=== PATIENT | male | born 1970 | race Two or more races ===

== ENCOUNTER 2021-12-05 21:21 | Inpatient (IN) | payer OTHER ==
[~2021-12-05] VITALS: Ht 172.7 cm; Wt 68.0 kg
--- NOTE | 2021-12-05 21:46 | NUR ---
TO ER BED 4. BIBPA C/O N/V X 1DAY. STATES "BLOOD SUGAR FEELS HIGH". PT DENIES CHEST PAIN. NOT IN RESPIRATORY DISTRESS. 2 EMESIS EPISODES NOTED WHILE AT BEDSIDE. PT CONNECTED TO MONITOR, CHOKING PRECAUTIONS IN PLACE. AWAITING MD SANCHEZ
--- NOTE | 2021-12-05 21:50 | NUR ---
BG >600, MD MADE AWARE
--- NOTE | 2021-12-05 22:08 | NUR ---
IV LINE ESTABLISHED , LAC 20G
--- NOTE | 2021-12-05 22:10 | NUR ---
BLOOD COLLECTED AND SENT TO LAB
[2021-12-05] MEDS ORDERED: MORPHINE SULFATE INJ 4 MG/ML DISP.SYRIN ONE (22:18)
[2021-12-05] MEDS ORDERED: ONDANSETRON HCL/PF 4 MG/2 ML VIAL ONE (22:18)
[2021-12-05] MEDS: IV NS 0.9% 1,000 ML IV PRN (22:24)
--- NOTE | 2021-12-05 22:25 | NUR ---
RT AT BEDSIDE FOR ABG
[2021-12-05] MEDS ORDERED: ONDANSETRON HCL/PF - ER 4 MG/2 ML VIAL IV ONE (22:30)
[2021-12-05] MEDS ORDERED: MORPHINE SULFATE INJ 2 MG/ML DISP.SYRIN IV ONE (22:30)
[2021-12-05] MEDS ORDERED: IV NS 0.9% 1,000 ML IV PRN ×3 (22:30→23:30)
[2021-12-05 22:35] LABS: ABG BASE EXCESS -17.2 mmol/L; ABG PCO2 21.2 mmHg (35.0-45.0); ABG PH 7.217 (7.350-7.450); ABG PO2 97.7 mmHg (75.0-100.0); COHb 0.1 % (0.5-1.5); MetHb 0.4 % (0.0-1.5); O2Hb 96.2 % (94.0-97.0); SITE, ABG Right Brachial; VENT MODE, BG Room Air
--- NOTE | 2021-12-05 22:46 | NUR ---
URINE COLLECTED AND SENT TO LAB
[2021-12-05 22:56] LABS: BASOPHILS % (AUTO) 0.1 % (0.0-2.0); EOSINOPHILS % (AUTO) 0.1 % (0.0-6.0); HEMATOCRIT 45 % (39-51); HEMOGLOBIN 14.3 g/dL (13.5-17.5); LYMPHOCYTES # (AUTO) 0.9 K/uL (0.8-4.8); LYMPHOCYTES % (AUTO) 2.6 % (20.0-44.0); MEAN CORPUSCULAR HGB CONC 32 g/dl (31.0-36.0); MEAN CORPUSCULAR VOLUME 94 fL (80-96); MONOCYTES # (AUTO) 1.8 K/uL (0.1-1.30); MONOCYTES % (AUTO) 5.5 % (2.0-12.0); NEUTROPHILS # (AUTO) 30.8 K/uL (1.8-8.9); NEUTROPHILS % (AUTO) 91.7 % (43.0-81.0); PLATELET COUNT (AUTO) 519 K/uL (150-450); RED BLOOD CELL COUNT(AUTO) 4.81 MIL/uL (4.5-6.0)
[2021-12-05 22:56] LABS: BILIRUBIN,URINE NEGATIVE (NEGATIVE); COLOR,URINE YELLOW (YELLOW); LEUKOCYTE ESTERASE ,URINE NEGATIVE (NEGATIVE); NITRITE, URINE NEGATIVE (NEGATIVE); PH,URINE 5.5 (5.0-8.0); PROTEIN,URINE NEGATIVE (NEGATIVE); UGLUCOSE >=1000 mg/dL (NEGATIVE); UROBILINOGEN,URINE 0.2 EU/dL (0.2)
[2021-12-05 23:00] LABS: BASOPHILS # (AUTO) 0.1 K/uL (0.0-0.2)
[2021-12-05 23:01] LABS: WHITE BLOOD COUNT (AUTO) 33.6 K/uL (4.3-11.0)
[2021-12-05 23:18] LABS: CALCIUM, SERUM 10.7 mg/dL (8.5-10.1); CREATININE 2.1 mg/dL (0.6-1.3); MAGNESIUM 2.3 mg/dL (1.8-2.4)
--- NOTE | 2021-12-05 23:18 | NUR ---
COVID TEST SWABBED AND SENT TO LAB
[2021-12-05] MEDS ORDERED: CLON0.5T PO (23:20)
[2021-12-05] MEDS ORDERED: QUET300T2 PO (23:20)
[2021-12-05] MEDS ORDERED: PREG150C PO (23:20)
[2021-12-05] MEDS ORDERED: CHOL100045 PO (23:20)
[2021-12-05] MEDS ORDERED: PARO10TA86 PO (23:20)
[2021-12-05] MEDS ORDERED: PANT40TA49 PO (23:20)
[2021-12-05] MEDS ORDERED: SIMV-49 PO (23:20)
[2021-12-05] MEDS ORDERED: LEVE1000 PO (23:20)
[2021-12-05 23:25] LABS: POTASSIUM 6.2 mmol/L (3.5-5.1)
[2021-12-05 23:26] LABS: PHOSPHORUS 8.9 mg/dL (2.5-4.9)
--- NOTE | 2021-12-05 23:26 | NUR ---
CRITICAL VALUES GLUCOSE 708, PHOS 8.9, POTASSIUM 6.2
--- NOTE | 2021-12-05 23:28 | NUR ---
SECOND IV LINE ESTABLISHED RAC 20G , PER ICU PROTOCAL
[2021-12-05] MEDS ORDERED: INSULIN REGULAR, HUMAN 100 UNITS in IV NS 0.9% 100 ML IV PRN ×2 (23:30)
[2021-12-05] MEDS ORDERED: INSULIN REGULAR, HUMAN 100 UNIT/ML 10 ML VIAL ONE (23:42)
[2021-12-05] MEDS ORDERED: ONDANSETRON 4 MG TAB.RAPDIS ONE (23:52)
[2021-12-05] MEDS ORDERED: Calcium Gluconate 0.465 MEQ/ML VIAL IV ONE (23:57)
[2021-12-06] MEDS ORDERED: MAGNESIUM HYDROXIDE 30 ML UDC PO PRN
[2021-12-06] MEDS ORDERED: IV NS 0.9% 1,000 ML IV PRN
[2021-12-06] MEDS ORDERED: Calcium Gluconate 1GM/10ML 4.65 MEQ in IV D5W 50 ML IV ONE ×2
[2021-12-06 00:20] LABS: BACTERIA,URINE None seen /HPF (None Seen); RBC,URINE 0-2 /HPF (0-2); SQUAMOUS EPITHELIAL CELL,UR Few /HPF (None Seen); WBC,URINE 0-2 /HPF (0-3)
[2021-12-06] MEDS: IV NS 0.9% 1,000 ML IV PRN (00:51)
[2021-12-06] MEDS ORDERED: HEPARIN SODIUM, PORCINE 5000 UNITS/1 ML VIAL ONE (00:55)
[2021-12-06] MEDS: HEPARIN SODIUM, PORCINE 5000 UNITS/1 ML VIAL SQ SCH ×3 (01:00→21:21)
--- NOTE | 2021-12-06 01:10 | NUR ---
FSBS:588 SPOKE TO KANDY ARROYO HOSPITALIST. PER HER TO FOLLOW THE FORMULA OF BSX1.5/100 INSULIN DRIP TITERATED TO 8.8UNIT/HR. WILL RE CHECK BLOOD SUGAR IN ONE HOUR.
--- NOTE | 2021-12-06 01:55 | NUR ---
PT RESTING COMFORTABLY IN BED, URINAL PROVIDED. WILL CONTINUE TO MONITOR
[2021-12-06 02:31] LABS: CALCIUM, SERUM 9.3 mg/dL (8.5-10.1); MAGNESIUM 2.2 mg/dL (1.8-2.4); PHOSPHORUS 6.1 mg/dL (2.5-4.9); POTASSIUM 4.8 mmol/L (3.5-5.1)
[2021-12-06 02:34] LABS: CREATININE 2.1 mg/dL (0.6-1.3)
[2021-12-06 03:06] LABS: CALCIUM, SERUM 8.8 mg/dL (8.5-10.1); CREATININE 1.9 mg/dL (0.6-1.3); MAGNESIUM 2.2 mg/dL (1.8-2.4)
--- NOTE | 2021-12-06 03:32 | NUR ---
BG 302, AWARE
--- NOTE | 2021-12-06 03:33 | NUR ---
INSULIN DRIP TRITRATED DOWN TO 4.53 PER PROTOCAL, PT TOLERATING WELL
--- NOTE | 2021-12-06 04:34 | NUR ---
BG 266, MD AWARE. TRITRATED INSULIN DRIP DOWN TO 3.99 PER PROTOCAL. WILL CONTINIE TO MONITOR
--- NOTE | 2021-12-06 05:47 | NUR ---
BG 233, AWARE. WILL TRITRATE INSULIN DRIP DOWN TO 3.495 PER PROTOCAL
[2021-12-06 06:02] LABS: CALCIUM, SERUM 9.2 mg/dL (8.5-10.1); CREATININE 1.9 mg/dL (0.6-1.3); MAGNESIUM 2.4 mg/dL (1.8-2.4); PHOSPHORUS 2.4 mg/dL (2.5-4.9); POTASSIUM 4.1 mmol/L (3.5-5.1)
[2021-12-06 06:21] LABS: BASOPHILS % (AUTO) 0.1 % (0.0-2.0); HEMATOCRIT 41 % (39-51); HEMOGLOBIN 13.2 g/dL (13.5-17.5); LYMPHOCYTES # (AUTO) 1.6 K/uL (0.8-4.8); LYMPHOCYTES % (AUTO) 4.4 % (20.0-44.0); MEAN CORPUSCULAR HGB CONC 32 g/dl (31.0-36.0); MEAN CORPUSCULAR VOLUME 92 fL (80-96); MONOCYTES # (AUTO) 2.3 K/uL (0.1-1.30); MONOCYTES % (AUTO) 6.2 % (2.0-12.0); NEUTROPHILS # (AUTO) 33.1 K/uL (1.8-8.9); NEUTROPHILS % (AUTO) 89.3 % (43.0-81.0); PLATELET COUNT (AUTO) 467 K/uL (150-450); RED BLOOD CELL COUNT(AUTO) 4.46 MIL/uL (4.5-6.0)
--- NOTE | 2021-12-06 07:06 | NUR ---
BG 222, MD AWARE. TRITRATED INSULIN DRIP DOWN TO 3.33 PER PROTOCAL
[2021-12-06] MEDS ORDERED: ONDANSETRON HCL/PF 4 MG/2 ML VIAL ONE (07:09)
[2021-12-06] MEDS ORDERED: INSU100V27 SQ ×2 (07:19)
[2021-12-06] MEDS ORDERED: ACET-2605 PO (07:19)
[2021-12-06] MEDS ORDERED: HYDR-4303 PO (07:19)
[2021-12-06] MEDS ORDERED: CEFTRIAXONE 1 G in IV D5W 50 ML IV SCH (07:30)
[2021-12-06 08:15] LABS: WHITE BLOOD COUNT (AUTO) 37.1 K/uL (4.3-11.0)
[2021-12-06] MEDS: CEFTRIAXONE 2 G in IV D5W 100 ML IV SCH (08:30)
--- NOTE | 2021-12-06 08:35 | NUR ---
DR ROTH INFORMED CRITICAL LAB RESULTS PROCALCITONIN 4.10, WBC 37.1, GLUCOSE CHECK 185. NO NEW ORDER MD WANTS TO SEE PATIENT.
[2021-12-06 09:11] LABS: BAND % (MANUAL) 6 % (0.0-5.0); LYMPHOCYTES % (MANUAL) 2 % (16-48); METAMYELOCYTES % 1 % (0-0); MONOCYTES % (MANUAL) 2 % (0-11.0); MYELOCYTES % 1 % (0-0); NEUTROPHILS % (MANUAL) 88 (42-76)
--- NOTE | 2021-12-06 09:15 | NUR ---
GLUCOSE CHECK 145. INFORMED
--- NOTE | 2021-12-06 09:43 | NUR ---
KENDRICK CAMP, DNP MADE AWARE RE: BLOOD GLUCOSE OF 145 MG/DL. WITH NEW ORDER FOR D5 1/2 NS WITH 20 MEQ KCL AT 125 ML/HR AND TO FOLLOW DKA PROTOCOL. PRIMARY RN AWARE.
[2021-12-06] MEDS: Potassium Chloride 20 MEQ in IV D5/0.45 NACL 1,000 ML IV SCH ×2 (10:00→21:19)
--- NOTE | 2021-12-06 10:00 | NUR ---
STARTED ON D5 1/2 NS WITH 20MEQ KCL AT 125 MLS/HR ORDERED.
[2021-12-06 10:07] LABS: CALCIUM, SERUM 8.7 mg/dL (8.5-10.1); CREATININE 1.4 mg/dL (0.6-1.3); POTASSIUM 4.5 mmol/L (3.5-5.1)
--- NOTE | 2021-12-06 11:30 | NUR ---
GLUCOSE CHECK 148. AWARE
[2021-12-06 11:42] LABS: BAND % (MANUAL) 2 % (0.0-5.0); LYMPHOCYTES % (MANUAL) 12 % (16-48); MONOCYTES % (MANUAL) 6 % (0-11.0); NEUTROPHILS % (MANUAL) 80 (42-76)
--- NOTE | 2021-12-06 12:50 | NUR ---
LATEST BLOOD GLUCOSE 175. MD IS AWARE
[2021-12-06 14:02] LABS: CALCIUM, SERUM 8.6 mg/dL (8.5-10.1); CREATININE 1.4 mg/dL (0.6-1.3); POTASSIUM 4.1 mmol/L (3.5-5.1)
--- NOTE | 2021-12-06 14:30 | NUR ---
GLU CHECK 155
[2021-12-06] MEDS ORDERED: Sodium Phosphate 15 MMOL in IV NS 0.9% 245 ML IV SCH (15:00)
[2021-12-06] MEDS: ACETAMINOPHEN 325 MG TABLET PO PRN (15:00)
[2021-12-06] MEDS ORDERED: ACETAMINOPHEN 325 MG TABLET ONE (15:05)
--- NOTE | 2021-12-06 16:11 | NUR ---
Pauline espitia in [facility] - 12/06/21 at 1700 by NIKA GLU CHECK 83
--- NOTE | 2021-12-06 16:11 | NUR ---
GLU CHECK 83 INSULIN INFUSION STOP
[2021-12-06] MEDS ORDERED: DEXTROSE 50%-WATER 50 ML DISP.SYRIN IV PRN (18:30)
--- NOTE | 2021-12-06 18:51 | NUR ---
ROOM 109. AFTER SHIFT.
[2021-12-06 19:37] LABS: CALCIUM, SERUM 8.3 mg/dL (8.5-10.1); CREATININE 1.2 mg/dL (0.6-1.3); POTASSIUM 3.9 mmol/L (3.5-5.1)
--- NOTE | 2021-12-06 20:01 | NUR ---
report given to ene
--- NOTE | 2021-12-06 20:28 | NUR ---
PT TRANSPORTED TO ROOM 109 ON SOLE STAINER PER ACLS PROTOCOL
[2021-12-06 20:52] VITALS: BP 139/70
--- NOTE | 2021-12-06 20:52 | NUR ---
NEW VEHICLE SALES CONSULTANT NOTES PT A/O X3 NO PAIN OF DISCOMFORT NOTED. PT ON ROOM AIR TOLERATING WELL. PT ON TELE MONITOR. PT NOTED WITH IV ACCESS ON THE LEFT AND RIGHT AC 2OG PT STARTED ON KCL D1/2 @ 110 RUNNING TOLERATING WELL. PT SKIN ASSESSMENT DONE PT SKIN DRY WARM AND INTACT DID NOTICE A SCAB ON PTS UPPER BACK PICTURE TAKEN AND PLACED IN CHART WILL ORDER WOUND CARE CONSULT. PT NOTED WITH LEFT EYE BLINDNESS. POSITIONED TABLE ON PT RIGHT SIDE FOR EASIER ACCESS. PT ORIENTED TO UNIT AND ROOM ALL NEEDS ATTENDED AT THIS TIME. BELONGINGS CHECKED PT HAS UPPER DENTURES WITH HIM PT INSISTED ON KEEPING THEM ON AT THIS TIME. WILL CONTINUE TO MONITOR. Addendum: 12/06/21 at 2340 by TOMASZ HUBER RN PT NOTED WITH PERSISTENT HICCUPS AND SOME SHAKINESS. FLUIDS STOPPED ONCE AQ CHECK SHOWED 317 BS.
[2021-12-06] MEDS: BLOOD SUGAR DIAGNOSTIC 1 EACH STRIP IN SCH (21:21)
[2021-12-06] MEDS: INSULIN GLARGINE, 100 UNIT/ML CARTRIDGE SQ SCH (21:39)
[2021-12-06] MEDS: INSULIN REGULAR, HUMAN 100 UNIT/ML 3 ML VIAL SQ PRN (21:42)
[2021-12-06] MEDS: ONDANSETRON HCL/PF 4 MG/2 ML VIAL IVP PRN (21:46)
--- NOTE | 2021-12-06 22:55 | NUR ---
REHABILITATION CLERK NOTES PT HAVING 1 EPISODE OF EMESIS N/V PRN BRANDI GIVEN TOLERATED WELL. WILL CONTINUE TO MONITOR. Addendum: 12/06/21 at 2328 by TOMASZ HUBER RN EMESIS X4
[2021-12-06 23:09] LABS: CALCIUM, SERUM 8.1 mg/dL (8.5-10.1); CREATININE 1.3 mg/dL (0.6-1.3); POTASSIUM 3.9 mmol/L (3.5-5.1)
[2021-12-07] MEDS: BLOOD SUGAR DIAGNOSTIC 1 EACH STRIP IN SCH ×6 (01:04→21:58)
[2021-12-07] MEDS: INSULIN REGULAR, HUMAN 100 UNIT/ML 3 ML VIAL SQ PRN ×6 (01:06→22:09)
[2021-12-07] MEDS: METOCLOPRAMIDE HCL 10 MG/2 ML VIAL IV SCH ×5 (01:55→23:09)
[2021-12-07 04:41] VITALS: BP 127/64
--- NOTE | 2021-12-07 04:43 | NUR ---
WOOD PILER NOTES PT SAID HE HAD BACK PAIN WHEN OFFERED PAIN MEDICATIO PT STATED " ITS OKAY I DONT NEED IT" WILL CONTINUE TO MONITOR.
--- NOTE | 2021-12-07 05:14 | NUR ---
OPERATIONS AND MAINTENANCE SPECIALIST NOTES REGLAN NOT GIVEN AT IT HAS ONLY BEEN 3 HOURS SINCE LAST DOSE WAS GIVEN. WILL CONTINUE TO MONITOR. PT DOES NOT HAVE N/V AT THIS TIME AND NO HICCUPS.
--- NOTE | 2021-12-07 06:45 | NUR ---
BEAMER HAND NOTES PT IN BED ASLEEP NO RESPIRATOR DISTRESS NOTED NO PAIN OR DISCOMFORT REPORTED. PT NO LONGER HAVING N/V. PT ALL NEEDS MET. CALL LIGHT WITHIN REACH. TABLE WITHIN REACH. PT ON TELE MONITOR ST IN 120S. WILL ENDORSE CARE TO DYA SHIFT NURSE.
[2021-12-07 07:10] LABS: CALCIUM, SERUM 8.8 mg/dL (8.5-10.1); POTASSIUM 4.1 mmol/L (3.5-5.1)
[2021-12-07 07:32] LABS: BASOPHILS # (AUTO) 0.1 K/uL (0.0-0.2); BASOPHILS % (AUTO) 0.2 % (0.0-2.0); HEMATOCRIT 36 % (39-51); HEMOGLOBIN 12.2 g/dL (13.5-17.5); LYMPHOCYTES # (AUTO) 1.7 K/uL (0.8-4.8); LYMPHOCYTES % (AUTO) 7.3 % (20.0-44.0); MEAN CORPUSCULAR HGB CONC 34 g/dl (31.0-36.0); MEAN CORPUSCULAR VOLUME 90 fL (80-96); MONOCYTES # (AUTO) 1.4 K/uL (0.1-1.30); MONOCYTES % (AUTO) 6.2 % (2.0-12.0); NEUTROPHILS # (AUTO) 19.7 K/uL (1.8-8.9); NEUTROPHILS % (AUTO) 86.3 % (43.0-81.0); PLATELET COUNT (AUTO) 381 K/uL (150-450); RED BLOOD CELL COUNT(AUTO) 4.04 MIL/uL (4.5-6.0); WHITE BLOOD COUNT (AUTO) 22.8 K/uL (4.3-11.0)
--- NOTE | 2021-12-07 07:35 | NUR ---
car rental sales assistant OPENING NOTES RECEIVED PATIENT IN BED, AWAKE, A/O X3, VERBALLY RESPONSIVE. BREATHING EVEN AND UNLABORED. NO SOB NOTED on room air. IV ACCESS LAC #20G, INTACT AND PATENT. NO S/S OF INFILTRATIONS. NO C/O PAIN OR DISCOMFORT. NO ACUTE DISTRESS. ALL SAFETY MEASURE IN PLACE. BED IN LOWEST POSITION AND LOCKED. BED ALARM ON. SIDE RAILS UP X2, PLACE CALL LIGHT WITH IN REACH. WILL CONTINUE TO MONITOR.
[2021-12-07] MEDS: CEFTRIAXONE 2 G in IV D5W 100 ML IV SCH (08:07)
[2021-12-07] MEDS: INSULIN LISPRO/ASPART 100 UNIT/ML CARTRIDGE SQ SCH ×3 (08:08→17:02)
[2021-12-07] MEDS: HEPARIN SODIUM, PORCINE 5000 UNITS/1 ML VIAL SQ SCH ×2 (08:12→21:45)
[2021-12-07] MEDS: ONDANSETRON HCL/PF 4 MG/2 ML VIAL IVP PRN (08:13)
[2021-12-07 09:16] LABS: ALBUMIN 3.3 g/dL (3.4-5.0); BILIRUBIN,TOTAL 0.5 mg/dL (0.2-1.0); CALCIUM, SERUM 8.7 mg/dL (8.5-10.1); CREATININE 1.1 mg/dL (0.6-1.3); PHOSPHORUS 2.3 mg/dL (2.5-4.9); POTASSIUM 3.7 mmol/L (3.5-5.1); TOTAL PROTEIN, SERUM 6.4 g/dL (6.4-8.2)
[2021-12-07 09:52] LABS: CREATININE 1.1 mg/dL (0.6-1.3)
[2021-12-07 12:00] VITALS: BP 141/93
[2021-12-07] MEDS: ACETAMINOPHEN 325 MG TABLET PO PRN ×2 (12:56→23:08)
--- NOTE | 2021-12-07 14:56 | NUR ---
telephone appointment clerk notes: patient and his mother request to talk to leather case finisher he does not want to get discharge to [facility], called leather case finisher ,made aware stated she will take care of it
[2021-12-07] MEDS ORDERED: K PHOS NEUTRAL 250 MG TABLET PO ONE (16:00)
[2021-12-07 17:00] VITALS: BP 153/96
--- NOTE | 2021-12-07 18:45 | NUR ---
TILER'S ASSISTANT CLOSING NOTES: PT IN BED AWAKEAND ALERT NO RESPIRATOR DISTRESS NOTED NO PAIN OR DISCOMFORT REPORTED. MILD EPISODE OF NAUSEA NO VOMITING THIS SHIFT,. PT ALL NEEDS MET. CALL LIGHT WITHIN REACH. TABLE WITHIN REACH. PT ON TELE MONITOR SR WILL ENDORSE CARE TO INCOMING SHIFT NURSE.
--- NOTE | 2021-12-07 19:30 | NUR ---
RN OPENING NOTES RECEIVED CARE OF PATIENT FROM AM NURSE WHILE PATIENT IN BED, A/O X3, ABLE TO VERBALIZE NEEDS, PATIENT EXPRESSES NO DISCOMFORT OR PAIN AT THIS TIME. PATIENT ON ROOM AIR, BREATHING EVEN AN UNLABORED, NO SOB NOTED. PATIENT ON TELE MONITOR SHOWING SINUS TACH WITH HR OF 107, NO DISTRESS NOTED. NO SIGNIFICANT FINDINGS UPON INITIAL NURSING ASSESSMENTS. ALL SAFETY MEASURE IN PLACE. BED IN LOWEST POSITION AND LOCKED. BED ALARM ON. SIDE RAILS UP X2, PLACE CALL LIGHT WITH IN REACH. WILL CONTINUE TO MONITOR.
[2021-12-07 20:00] VITALS: BP 148/83
[2021-12-07] MEDS: INSULIN GLARGINE, 100 UNIT/ML CARTRIDGE SQ SCH (22:08)
--- NOTE | 2021-12-07 22:15 | NUR ---
RN NOTES: PT'S BLOOD SUGAR 211,20 UNITS OF LANTUS AND 6 UNITS OF REGULAR INSULIN GIVEN ORDER. NO S/S OF HYPER/HYPOGLYCEMIA. WILL CONTINUE TO MONITOR
--- NOTE | 2021-12-07 23:23 | NUR ---
RN NOTES: PT C/O MILD HEADACHE, 3/10 PAIN SCALE. TYLENOL 650 MG TABS GIVEN. PT TOLERATED WELL. WILL CONTINUE TO MONITOR
[2021-12-08] VITALS: BP 145/78
[2021-12-08] MEDS: HYDROCODONE/APAP 5/325MG TABLET PO PRN ×3 (00:53→16:00)
[2021-12-08] MEDS: BLOOD SUGAR DIAGNOSTIC 1 EACH STRIP IN SCH ×4 (01:02→12:09)
[2021-12-08] MEDS: INSULIN REGULAR, HUMAN 100 UNIT/ML 3 ML VIAL SQ PRN ×3 (01:18→12:16)
--- NOTE | 2021-12-08 01:21 | NUR ---
RN NOTES: PT STILL C/O GENERALIZED BODY PAIN 7/10 PAIN SCALE. NORCO 5/325 MG TAB GIVEN. BLOOD SUGAR 174, 3 UNITS OF REGULAR INSULIN GIVEN. NO S/S OF HYPER/HYPOGLYCEMIA. WILL CONTINUE TO MONITOR
[2021-12-08 04:00] VITALS: BP 148/78
[2021-12-08] MEDS: METOCLOPRAMIDE HCL 10 MG/2 ML VIAL IV SCH ×2 (05:33→11:06)
--- NOTE | 2021-12-08 06:42 | NUR ---
RN CLOSING NOTES: PT IN BED SLEEPING BUT EASILY AROUSABLE, ALERT/ORIENTED X3 AND VERBALLY RESPONSIVE. ON ROOM AIR, O2 SAT 98% AND PT TOLERATED WELL. BREATHING EVEN AND UNLABORED. IV ACCESS ON LAC#20G AND RAC#20G INTACT AND PATENT. NO S/S OF INFILTRATIONS. NO C/O PAIN OR DISCOMFORT. NO ACUTE DISTRESS. BLOOD SUGAR AT 0500, 124, NO COVERAGE NEEDED. NO S/S OF HYPER/HYPOGLYCEMIA. ALL DUE MEDS GIVEN ORDERED. ALL SAFETY MEASURES IN PLACE. SIDE RAILS UP X2, BED IN LOWEST POSITION AND LOCKED. PLACE CALL LIGHT WIT IN REACH. WILL ENDORSE TO MORNING SHIFT NURSE.
[2021-12-08 07:02] LABS: BASOPHILS # (AUTO) 0.1 K/uL (0.0-0.2); BASOPHILS % (AUTO) 0.8 % (0.0-2.0); EOSINOPHILS % (AUTO) 0.2 % (0.0-6.0); HEMATOCRIT 40 % (39-51); HEMOGLOBIN 13.6 g/dL (13.5-17.5); LYMPHOCYTES # (AUTO) 1.9 K/uL (0.8-4.8); LYMPHOCYTES % (AUTO) 17.8 % (20.0-44.0); MEAN CORPUSCULAR HGB CONC 34 g/dl (31.0-36.0); MEAN CORPUSCULAR VOLUME 89 fL (80-96); MONOCYTES % (AUTO) 9.2 % (2.0-12.0); NEUTROPHILS # (AUTO) 7.7 K/uL (1.8-8.9); PLATELET COUNT (AUTO) 376 K/uL (150-450); RED BLOOD CELL COUNT(AUTO) 4.47 MIL/uL (4.5-6.0); WHITE BLOOD COUNT (AUTO) 10.8 K/uL (4.3-11.0)
--- NOTE | 2021-12-08 07:25 | NUR ---
TRANSCRIPTIONIST OPENING NOTES RECEIVED PATIENT IN BED, AWAKE, A/O X3, VERBALLY RESPONSIVE. BREATHING EVEN AND UNLABORED. ON ROOM AIR, NO SOB NOTED. IV ACCESS LAC #20G AND RAC #20G, INTACT AND PATENT. NO C/O PAIN OR DISCOMFORT AT THIS TIME. NO SIGNS OF ACUTE DISTRESS. ON TELE MONITOR SHOWING SR/ST @100-105'S. SAFETY MEASURE IN PLACE. BED IN LOWEST AND LOCKED POSITION. BED ALARM ON. SIDE RAILS UP X2, PLACE CALL LIGHT WITH IN REACH. WILL CONTINUE TO MONITOR.
[2021-12-08 08:00] VITALS: BP 147/93
[2021-12-08] MEDS: INSULIN LISPRO/ASPART 100 UNIT/ML CARTRIDGE SQ SCH ×2 (08:01→12:11)
[2021-12-08] MEDS: CEFTRIAXONE 2 G in IV D5W 100 ML IV SCH (08:02)
[2021-12-08 08:11] LABS: CALCIUM, SERUM 8.7 mg/dL (8.5-10.1); CREATININE 0.8 mg/dL (0.6-1.3); MAGNESIUM 1.7 mg/dL (1.8-2.4); PHOSPHORUS 3.2 mg/dL (2.5-4.9); POTASSIUM 3.2 mmol/L (3.5-5.1)
[2021-12-08] MEDS: HEPARIN SODIUM, PORCINE 5000 UNITS/1 ML VIAL SQ SCH (09:53)
[2021-12-08] MEDS: Magnesium 1GM/D5W 100ML PREMIX 100 ML IV SCH ×2 (10:02→11:06)
[2021-12-08] MEDS: POTASSIUM CHLORIDE 20 MEQ TAB.PRT.SR PO SCH ×2 (10:02→11:06)
[2021-12-08 12:00] VITALS: BP 160/86
[2021-12-08] MEDS: ONDANSETRON HCL/PF 4 MG/2 ML VIAL IVP PRN (15:11)
[2021-12-08] MEDS ORDERED: Insulin Glargine,Hum SQ (15:14)
[2021-12-08] MEDS ORDERED: CEPH250S PO (15:14)
[2021-12-08] MEDS ORDERED: INSU100C SQ (15:14)
[2021-12-08] MEDS ORDERED: INSU100V7 SQ (15:15)
--- NOTE | 2021-12-08 16:50 | NUR ---
STUDENT SUPPORT SERVICES DIRECTOR NOTES PATIENT DISCHARGED HOME IN STABLE CONDITION. PATIENT ALERT AND ORIENTED, VERBALLY RESPONSIVE, NO SIGNS OF ACUTE DISTRESS NOTED. VITAL SIGNS TAKEN, STABLE. IV ACCESS ON RAC AND LEFT AC REMOVED. NO BLEEDING NOTED. PRESSURE DRESSING APPLIED. ARM NAMEBAND REMOVED. ALL BELONGINGS ACCOUNTED FOR. FORM SIGNED BY PATIENT. EXITCARE FOLDER GIVEN TO PATIENT. DISCHARGE INSTRUCTIONS AND HEALTH TEACHINGS PROVIDED TO PATIENT WITH VERBALIZATION OF UNDERSTANDING. PATIENT LEFT UNIT @1645. PICKED UP BY MOTHER DONAL, ACCOMPANIED BY JOE DIANE VIA W/C IN THE LOBBY. CN AWARE OF DISCHARGE.
== END 2021-12-08 16:45 | disposition home health service (06) | DRG 420 ==
LOC: ER 21:30 → TRANSITION 12-06 00:10 → ICU 12-06 15:22 → TRANSITION 12-06 17:29 → TELE1 12-06 19:53
PROVIDERS: ADMIT Nurse Practitioner Acute Care; ATTEND Student in an Organized Health Care Education/Training Program
DX: E11.10 Type 2 diabetes mellitus with ketoacidosis without coma (principal); N17.0 Acute kidney failure with tubular necrosis; G93.41 Metabolic encephalopathy; E11.40 Type 2 diabetes mellitus with diabetic neuropathy, unspecified; E78.5 Hyperlipidemia, unspecified; F32.A Depression, unspecified; I10 Essential (primary) hypertension; Z20.822 Contact with and (suspected) exposure to COVID-19; E83.52 Hypercalcemia; Z86.73 Personal history of transient ischemic attack (TIA), and cerebral infarction without residual deficits; K80.20 Calculus of gallbladder without cholecystitis without obstruction; Z87.81 Personal history of (healed) traumatic fracture; Z91.013 Allergy to seafood; Z79.899 Other long term (current) drug therapy; D72.829 Elevated white blood cell count, unspecified; F43.9 Reaction to severe stress, unspecified; Z91.19 Patient's noncompliance with other medical treatment and regimen; E87.5 Hyperkalemia; E87.2 Acidosis; E86.0 Dehydration; D75.839 Thrombocytosis, unspecified; M62.40 Contracture of muscle, unspecified site
CPT/HCPCS: 36415; 36600; 71045-TC; 80048-TC; 80053-TC; 80061-TC; 81001; 82010-TC; 82803-TC; 82962-TC; 83690-TC; 83735-TC; 84100-TC; 85025-TC; 87081-TC; 97116-TC; 97530-TC; A4623; A9563; G0378; J0610; J0696; J1644; J1815; J2270; J2405; J2765; J3475; J3480; J3490; J7030; J7050; J7060; Q0162